=== PATIENT | male | born 1935 | race Caucasian/White ===

== ENCOUNTER 2024-06-21 11:25 | Emergency (ER) | payer MEDICARE, SELFPAY ==
--- NOTE | ~2024-06-21 | XR_ITS ---
EXAMINATION: XR knee LT min 4V DATE: 06/21/2024 12:17 INDICATION: Left knee pain post fall TECHNIQUE: Anteroposterior, 2 oblique, sunrise and crosstable lateral views of the left knee were obt ained COMPARISON: None. FINDINGS: Alignment is normal. No fracture. There is at least mild joint space narrowing the medial compartmen t which could be underestimated on nonweightbearing imaging. Small marginal osteophytes at the patell ofemoral compartment. Small enthesophytes along the anterior patella. No joint effusion/layering lipo hemarthrosis. Soft tissues are unremarkable. IMPRESSION: 1. Mild medial and patellofemoral osteoarthritis. No joint effusion or acute osseous abnormality. Reviewed, dictated and finalized at location B. UALIZATION CONSULTANT IMPRESSION: 1. Mild medial and patellofemoral osteoarthritis. No joint effusion or acute os seous abnormality.
[2024-06-21 11:36] VITALS: BP 118/62; PULSE 60; RESP 20; TEMP 36.4; O2SAT 96
--- NOTE | 2024-06-21 11:49 | ED.LOWEXIN ---
HPI - Extremity Injury (Lower) General Chief Complaint: Extremity Injury, Lower Stated Complaint: Left leg under knee injury Source: patient Mode of arrival: ambulatory Limitations: no limitations History of Present Illness HPI Narrative: 89-year-old male with hx [place] and DM presented for c/o pain to left leg after injury last night. States he stepped onto a high stair and slipped,causing him to fall and land on the left outer leg. Taking hydrocodone for chronic pain. Pt has been able to ambulate at baseline using rollator. No bruising. Pt has chronic lower extremity swelling, which they say is at baseline. Related Data Home Medications Medication Instructions Recorded Confirmed aspirin 81 mg tablet,delayed mg 06/21/24 release bethanechol chloride 25 mg tablet mg 06/21/24 clopidogrel 75 mg tablet mg 06/21/24 donepezil 5 mg tablet mg 06/21/24 dulaglutide 1.5 mg/0.5 mL mg subcut 06/21/24 subcutaneous pen injector (Trulicity) duloxetine 60 mg capsule,delayed mg PO 06/21/24 release finasteride 5 mg tablet mg 06/21/24 gabapentin 300 mg capsule mg 06/21/24 hydrocodone 10 mg-acetaminophen tablet 06/21/24 325 mg tablet insulin aspart U-100 100 unit/mL 06/21/24 subcutaneous solution (Novolog U-100 Insulin aspart) insulin detemir U-100 100 unit/mL unit subcut 06/21/24 (3 mL) subcutaneous pen isosorbide mononitrate 30 mg mg PO 06/21/24 tablet,extended release 24 hr lisinopril 5 mg tablet mg 06/21/24 memantine 10 mg tablet mg 06/21/24 metoprolol tartrate 25 mg tablet mg 06/21/24 ranolazine 500 mg tablet,extended mg PO 06/21/24 release,12 hr Allergies Allergy/AdvReac Type Severity Reaction Status Date / Time [id number] Reductase Allergy Unknown Verified 06/21/24 11:44 Inhibitor Review of Systems Review of Systems: CONSTITUTIONAL: Denies body aches, fever, chills CARDIOVASCULAR: Denies chest pain, palpitations, or edema. RESPIRATORY: Denies cough or dyspnea. SKIN: Denies rash, itching, or wounds. MUSCULOSKELETAL: reports left leg pain NEUROLOGIC: Denies headache, numbness, tingling, or weakness. All systems reviewed & are unremarkable except as noted in HPI and below PMFSH Past Medical History Medical History (Updated 06/21/24 @ 12:34 by Geeta Alexandre, RICHI) Diabetes Myocardial infarct Pacemaker Comments At time of signature, I have reviewed and agree with nursing past medical, surgical, social and family history unless otherwise noted. Please see nursing chart for further information. There is no relevant family history pertinent to the presenting complaint Exam Narrative: GENERAL: Well-appearing CHEST: Speaks in full sentences. No respiratory distress. HEART: Regular rate and rhythm. Normal and equal peripheral pulses. EXTREMITIES: LLE has baseline strength, sensation and range of motion at knee, but endorses pain with movement and palpation over lateral knee and posterior distal knee. Chronic BLE edema 3+. No ecchymosis, No open wounds, or obvious deformity; alignment normal, pulse palpable and equal bilaterally, skin warm, dry, pink. Capillary refill less than 3 seconds. Using Rollator. SKIN: Warm, dry NEURO: Alert and oriented x3. PSYCH: Normal mood and affect Course Course Emergency Course: Patient is aware of diagnosis, understands and agrees to treatment plan. Anticipatory guidance given. Patient agrees to follow-up as directed and is aware of reasons to seek care at the emergency department. Portions of this record may have been created with voice recognition software Level of Care: Express Care Visit Vital Signs Vital signs: Vital Signs Temperature 97.6 F 06/21/24 11:36 Pulse Rate 60 06/21/24 11:36 Respiratory Rate 20 06/21/24 11:36 Blood Pressure 118/62 06/21/24 11:36 Pulse Oximetry 96 06/21/24 11:36 Oxygen Delivery Room Air 06/21/24 11:36 Temperature 97.6 F 06/21/24 11:36 Pulse Rate 60 06/21/24 11:36 Respiratory Rate 20 06/21/24 11:36 Blood Pressure 118/62 06/21/24 11:36 Pulse Oximetry 96 06/21/24 11:36 Oxygen Delivery Room Air 06/21/24 11:36 Reviewed MDM - Extremity Injury (Lower) MDM Narrative Medical decision making narrative: Discussed physical exam findings and xray. NICOLE applied to left knee. Advised supportive measures and signs/symptoms to go to the ER. Pt is appropriate for outpt treatment and f/u. Differential Diagnosis Differential diagnosis: Likely other (osteoarthritis, patella dislocation, patellar tendonitis, tendon rupture, gout, bakers cyst, septic bursitis, dvt, tibial plateau fracture) Imaging Data Radiologist's impression: Patient: Milton Mckeon : 1935 MR#: [id number] Age: 89 Acct:[id number] Loc: [facility] ADM Date: 06/21/24Attending Dr: Ordering Physician: Geeta Alexandre APRN Date of Service: 06/21/24 Procedure(s): XR knee LT min 4V Accession Number(s): [id number] cc: Geeta Alexandre APRN~ EXAMINATION: XR knee LT min 4V DATE: 06/21/2024 12:17 INDICATION: Left knee pain post fall TECHNIQUE: Anteroposterior, 2 oblique, sunrise and crosstable lateral views of the left knee were obtained COMPARISON: None. FINDINGS: Alignment is normal. No fracture. There is at least mild joint space narrowing the medial compartment which could be underestimated on nonweightbearing imaging. Small marginal osteophytes at the patellofemoral compartment. Small enthesophytes along the anterior patella. No joint effusion/layering lipohemarthrosis. Soft tissues are unremarkable. IMPRESSION: 1. Mild medial and patellofemoral osteoarthritis. No joint effusion or acute osseous abnormality. Discharge Plan Discharge Clinical Impression: Acute pain of left lower extremity Patient Disposition: Home, Self-Care Condition: Stable Instructions: Antibiotic Form, Knee Sprain (DC) Additional Instructions: Rest and elevate the left leg; bear weight as tolerated continue using a Rollator Apply ice 15-20 minute intervals several times a day Keep it wrapped with NICOLE or use a soft knee splint Tylenol every 8 hours as needed (not to exceed 3000mg in 24 hours from all sources) Follow up with your primary care provider, call today to schedule an appointment go to the ER for any worsening symptoms or concerns Prescriptions: No Action donepezil 5 mg tablet isosorbide mononitrate 30 mg tablet extended release 24 hr PO clopidogrel 75 mg tablet hydrocodone-acetaminophen 10-325 mg tablet aspirin 81 mg tablet,delayed release (DR/EC) bethanechol chloride 25 mg tablet insulin aspart U-100 [Novolog U-100 Insulin aspart] 100 unit/mL solution gabapentin 300 mg capsule lisinopril 5 mg tablet finasteride 5 mg tablet memantine 10 mg tablet metoprolol tartrate 25 mg tablet duloxetine 60 mg capsule,delayed release(DR/EC) PO ranolazine 500 mg tablet extended release 12 hr PO Levemir FlexPen 100 unit/mL (3 mL) insulin pen SUBCUT Trulicity 1.5 mg/0.5 mL pen injector SUBCUT Follow-up/Referrals: PHYSICIAN NOT ON STAFF,NONSTAFF [Primary Care Provider] - Time of Disposition: 12:34
== END 2024-06-21 12:42 | disposition home or self-care (01) ==
PROVIDERS: Emergency Provider Nurse Practitioner Family
DX: M79.662 Pain in left lower leg (principal); E11.9 Type 2 diabetes mellitus without complications; I25.2 Old myocardial infarction; Z95.0 Presence of cardiac pacemaker
CPT/HCPCS: 73564; 99203; G0463